=== PATIENT | female | born 1970 | race Caucasian/White ===

== ENCOUNTER 2017-04-16 18:33 | Observation (INO) ==
[2017-04-16] MEDS ORDERED: HYDROmorphone 2 MG/ML SYRINGE ONE (18:44)
[2017-04-16] MEDS ORDERED: HYDROmorphone 2 MG/ML SYRINGE IV PRN (18:45)
[2017-04-16] MEDS ORDERED: fentaNYL 100 MCG/2 ML VIAL IV ONE ×4 (18:47→19:48)
[2017-04-16] MEDS ORDERED: MIDAZOLAM 5 MG/5 ML VIAL IV ONE (19:25)
[2017-04-16] MEDS ORDERED: PROPOFOL 200 MG/20 ML VIAL IV ONE (19:25)
[2017-04-16 19:30] LABS: Basophils # (Auto) 0.1 K/mcL (0.0-0.3); Basophils % (Auto) 0.8 % (0.0-2.0); Eosinophils # (Auto) 0.1 K/mcL (0.0-0.7); Eosinophils % (Auto) 1.6 % (0.0-7.0); Granulocytes % (Auto) 36.7 % (38.0-78.0); Lymphocytes # (Auto) 4.2 K/mcL (1.5-4.8); Lymphocytes % (Auto) 52.9 % (15.5-49.0); Mean Cell Volume 95.8 fL (80.0-100.0); Mean Corpuscular HGB Conc 34.1 g/dL (31.0-36.0); Mean Corpuscular Hemoglobin 32.6 pg (26.0-34.0); Monocytes # (Auto) 0.6 K/mcL (0.1-0.9); Platelet Count 282 K/mcL (140-440); RBC 4.38 M/mcL (4.00-5.20); Red Cell Distribution Width 12.3 % (11.5-14.5)
[2017-04-16 19:48] LABS: ALT/SGPT 20 U/l (0-40); Albumin 4.3 gm/dL (3.2-5.2); Albumin/Globulin Ratio 1.4 (1.0-2.3); Alkaline Phosphatase 80 U/L (39-117); Blood Urea Nitrogen 8 mg/dl (6-20)
--- NOTE | 2017-04-16 21:00 | Emergency Department Note ---
Upper Extremity HPI - General Chief Complaint: Extremity Injury, Upper Stated Complaint: Fall, right wrist deformity Time Seen by Provider: 04/16/17 18:43 Source: patient Mode of arrival: ambulatory Limitations: no limitations - History of Present Illness HPI Narrative: 46-year-old female tripped and fell after backing up from a horse causing a FOOSH type right-sided wrist injury. She has a deformed right wrist now. Last meal was about 1 PM. Pain management is complicated by her using oral Dilaudid for chronic back pain - Related Data Home Medications Medication Instructions Recorded Confirmed armodafinil 250 mg tablet 250 mg PO QAM 06/21/15 04/16/17 pantoprazole 40 mg tablet,delayed 40 mg PO QDAY 06/21/15 04/16/17 release HYDROmorphone HCL [Dilaudid] 4 mg PO Q6H PRN 04/16/17 04/16/17 Pregabalin [Lyrica] 150 mg PO BID 04/16/17 04/16/17 buPROPion [Wellbutrin] 300 mg PO ONCE 04/16/17 04/16/17 lamoTRIgine [LaMICtal] 25 mg PO ONCE 04/16/17 04/16/17 Previous Rx's Medication Instructions Recorded morphine ER 15 mg tablet,extended 15 mg PO TID #90 tab 07/05/15 release zolpidem 10 mg tablet 5 mg PO HS PRN #30 tab 07/05/15 doxepin 25 mg capsule 25 mg PO QDAY 30 Days 07/06/15 metaxalone 800 mg tablet 800 mg PO TID PRN #30 tab 07/06/15 sumatriptan 100 mg tablet 100 mg PO ONCE PRN #30 tab 07/06/15 Allergies Allergy/AdvReac Type Severity Reaction Status Date / Time codeine AdvReac Mild Other Verified 04/17/17 06:33 hydrocodone AdvReac Mild Migraine Verified 04/17/17 06:33 Review of Systems All systems ED: reviewed and negative except as stated. Past Medical History - Past Medical History Attestation: Yes: The following information was validated with the patient. Medical history: Reports: migraine, other (Chronic low back pain, SVT) Surgical history ED: Reports: orthopedic, other (Bunionectomy, wrist), other ( face, eye, nose) - Social History smoking status: Never smoker Physical Exam Some acute distress secondary to pain. Heart is regular rate and rhythm no murmurs appreciated. Lungs are clear to auscultation bilaterally without wheezes rales rhonchi or respiratory distress. Right wrist has an S-shaped deformity consistent with a Colles fracture. Hand is examined status post reduction and splinting-radial and ulnar pulses are intact. She is able to move her fingers however this does elicit tenderness so she is minimizing any movement. Normal color to her hand - General Limitations: no limitations Course Vital Signs Temperature 98.1 F 04/16/17 18:34 Pulse Rate 101 H 04/16/17 18:34 Respiratory Rate 26 H 04/16/17 18:34 Pulse Oximetry (%) 100 04/16/17 18:34 Temperature 98.2 F 04/17/17 04:00 Pulse Rate 87 04/17/17 04:00 Respiratory Rate 24 H 04/17/17 04:01 Blood Pressure 107/58 04/17/17 04:00 Pulse Oximetry (%) 92 04/17/17 04:00 Procedures - Orthopedic Fracture Reduction Fracture #1 Consent Obtained: written consent Time Out Performed: No Side: right Fracture Reduction Location: radius, ulna Analgesia: other (Propofol by anesthesia) Technique: traction/counter-traction Post Reduction X-rays Demonstrate: acceptable reduction Post-reduction neuro exam: intact Post-reduction vascular exam: intact Splint Applied: Yes Patient Tolerated Procedure: no complications Additional Comments: Used the C arm to reduce right-sided Colles fracture was completely displaced. Dr. Godoy happened to be here for another patient and looked at my reduction and adjusted it slightly. I then placed a sugar tong splint. Extremity Injury, Upper - Lab Data Lab results reviewed: Yes I reviewed the patient's lab results. Result diagrams: 04/16/17 19:02 04/16/17 19:02 Lab Results 04/16/17 04/16/17 Range/Units 19:02 19:02 WBC 7.9 (4.5-11.0) K/mcL RBC 4.38 (4.00-5.20) M/mcL Hgb 14.3 (12.0-15.0) g/dL Hct 41.9 (36.0-48.0) % MCV 95.8 (80.0-100.0) fL MCH 32.6 (26.0-34.0) pg MCHC 34.1 (31.0-36.0) g/dL RDW 12.3 (11.5-14.5) % Plt Count 282 (140-440) K/mcL MPV 8.9 (7.4-10.4) fL Gran % 36.7 L (38.0-78.0) % Lymph % (Auto) 52.9 H (15.5-49.0) % Reynolds % (Auto) 8.0 (1.0-12.0) % Eos % (Auto) 1.6 (0.0-7.0) % Baso % (Auto) 0.8 (0.0-2.0) % Gran # 2.9 (1.8-8.0) K/mcL Lymph # (Auto) 4.2 (1.5-4.8) K/mcL Reynolds # (Auto) 0.6 (0.1-0.9) K/mcL Eos # (Auto) 0.1 (0.0-0.7) K/mcL Baso # (Auto) 0.1 (0.0-0.3) K/mcL Sodium 138 (133-145) mmol/L Potassium 3.7 (3.3-5.1) mmol/L Chloride 102 (96-108) mmol/L Carbon Dioxide 21 L (22-30) mmol/L Anion Gap 15.0 (8-16) BUN 8 (6-20) mg/dl Creatinine 0.8 (0.6-1.1) mg/dl GFR Calculation 90 Glucose 112 H (70-105) mg/dL Calcium 9.1 (8.6-10.4) mg/dl Total Bilirubin 0.2 (0.0-1.0) mg/dL AST 15 (0-37) U/l ALT 20 (0-40) U/l Alkaline Phosphatase 80 (39-117) U/L Total Protein 7.3 (5.9-8.4) gm/dL Albumin 4.3 (3.2-5.2) gm/dL Globulin 3.0 (2.2-3.7) gm/dL Albumin/Globulin Ratio 1.4 (1.0-2.3) - Radiology Data Radiology results reviewed: Yes I reviewed the patient's radiology results. X-ray of the right wrist show Colles fracture, second film shows post reduction about 80% aligned-it was better status post C arm but it has moved a little bit after splinting. Disposition Pt seen by SHANK ARCHER/PA only: No (MD only ) Clinical Impression: Colles' fracture Qualifiers: Encounter type: initial encounter Fracture type: closed Laterality: right Qualified Code(s): S52.531A - Colles' fracture of right radius, initial encounter for closed fracture Summary: Initially discussed this patient with Dr. White, the orthopedist who agreed to look into repairing her wrist tomorrow morning. However we were not able to control her pain at any time during her visit despite giving her fentanyl and Dilaudid. So I discussed her case with the hospitalist and called Dr. White back-Dr. Kendrick the hospitalist agreed to accept the patient for observation stay for IV pain management with Dr. White consulting. Disposition: Xfer As Inpt ([facility]) Condition: Fair
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
[2017-04-16] MEDS ORDERED: MAGNESIUM HYDROXIDE 30 ML ORAL.SUSP PO PRN (21:35)
[2017-04-16] MEDS ORDERED: NALOXONE HCL 0.4 MG/ML VIAL IV PRN (21:35)
[2017-04-16] MEDS ORDERED: DOCUSATE SODIUM 100 MG CAPSULE PO PRN (21:35)
[2017-04-16] MEDS ORDERED: ONDANSETRON 4 MG/2 ML VIAL IV PRN (21:35)
[2017-04-16] MEDS ORDERED: HYDROmorphone PCA 30 MG/30 ML PCA.VIAL IV PRN (21:35)
[2017-04-16] MEDS: 0.9 % SODIUM CHLORIDE 10 ML SYRINGE IV SCH (22:00)
[2017-04-16] MEDS: 0.9 % SODIUM CHLORIDE 1,000 ML IV SCH (22:00)
[2017-04-17] MEDS ORDERED: HYDROmorphone PCA 30 MG/30 ML PCA.VIAL IV PRN ×2 (04:00→18:18)
[2017-04-17] MEDS ORDERED: ZOLPIDEM 10 MG TABLET PO PRN (07:26)
[2017-04-17] MEDS ORDERED: METAXALONE 800 MG TABLET PO PRN (07:26)
[2017-04-17 07:34] LABS: ALT/SGPT 15 U/l (0-40); Albumin 3.7 gm/dL (3.2-5.2); Albumin/Globulin Ratio 1.7 (1.0-2.3); Alkaline Phosphatase 66 U/L (39-117); Bilirubin,Direct < 0.2 mg/dL (0.0-0.3); Blood Urea Nitrogen 6 mg/dl (6-20); Gamma Glutamyl Transpeptidase 42 U/L (5-36); Uric Acid 4.2 mg/dL (2.5-8.0)
[2017-04-17] MEDS ORDERED: SUMAtriptan SUCCINATE 50 MG TABLET PO PRN (07:45)
--- NOTE | 2017-04-17 07:52 | XRay Report ---
HISTORY: Reason for Exam:fall and wrist injury FINDINGS: There is an acute comminuted intra-articular fracture of the distal radius. The fracture fragments and adjacent carpal bones are displaced posteriorly and retracted proximally. There is also a fracture of the distal ulna. The distal end is deviated in a radial direction. The carpal bones appear normal and remained aligned with the fractured distal radius. IMPRESSION: Comminuted fracture of the distal radius and ulna with severe deformity Interpreted and Authenticated by: Derik Quezada 04/17/17
[2017-04-17] MEDS: 0.9 % SODIUM CHLORIDE 10 ML SYRINGE IV SCH ×3 (07:59→21:51)
[2017-04-17] MEDS: PANTOPRAZOLE 40 MG TABLET PO SCH (07:59)
--- NOTE | 2017-04-17 08:01 | XRay Report ---
HISTORY: Reason for Exam:post reduction FINDINGS: There is no good anatomic alignment following closed reduction of the comminuted fracture involving the distal radius. The distal end of the bone remains displaced in a radial direction 5 mm but there is no angulation or retraction. The fractured distal ulna is now normally aligned. Overlying cast material obscures fine bone detail. IMPRESSION: Good alignment following closed reduction of the fractured distal radius and ulna Interpreted and Authenticated by: Derik Quezada 04/17/17
[2017-04-17] MEDS ORDERED: ceFAZolin 1 GM VIAL IV SCH (08:45)
[2017-04-17] MEDS ORDERED: ONDANSETRON 4 MG/2 ML VIAL IV ONE (09:30)
[2017-04-17] MEDS ORDERED: LIDOCAINE HCL/PF 100 MG/5 ML SYRINGE IV ONE (09:30)
[2017-04-17] MEDS ORDERED: fentaNYL 100 MCG/2 ML VIAL IV ONE (09:30)
[2017-04-17] MEDS ORDERED: PROPOFOL 200 MG/20 ML VIAL IV ONE (09:30)
[2017-04-17] MEDS ORDERED: MIDAZOLAM 5 MG/5 ML VIAL IV ONE (09:30)
[2017-04-17] MEDS ORDERED: DEXAMETHASONE 10 MG/ML VIAL IV ONE (09:30)
[2017-04-17] MEDS ORDERED: ROPIVACAINE HCL/PF 20 ML VIAL IJ ONE (09:30)
[2017-04-17] MEDS ORDERED: LACTATED RINGERS 250 ML IV PRN (10:31)
[2017-04-17] MEDS ORDERED: BENZOCAINE/MENTHOL 1 LOZENGE PO PRN (10:31)
[2017-04-17] MEDS ORDERED: HYDROmorphone 2 MG/ML SYRINGE IV PRN (10:31)
[2017-04-17] MEDS ORDERED: ONDANSETRON 4 MG/2 ML VIAL IV PRN (10:31)
[2017-04-17] MEDS ORDERED: MEPERIDINE 50 MG/ML SYRINGE IM PRN (10:31)
[2017-04-17] MEDS ORDERED: ePHEDrine 50 MG/ML AMPUL IV PRN (10:31)
[2017-04-17] MEDS ORDERED: METOCLOPRAMIDE 10 MG/2 ML VIAL IV PRN (10:31)
[2017-04-17] MEDS ORDERED: FLUMAZENIL 0.1 MG/ML ML IV PRN (10:31)
[2017-04-17] MEDS ORDERED: METHOCARBAMOL 1,000 MG/10 ML VIAL IV PRN (10:31)
[2017-04-17] MEDS ORDERED: NALOXONE HCL 0.4 MG/ML VIAL IV PRN (10:31)
[2017-04-17] MEDS ORDERED: IPRATROPIUM/ALBUTEROL 3 ML AMPUL.NEB NEB PRN (10:31)
[2017-04-17] MEDS ORDERED: LACTATED RINGERS 1,000 ML IV SCH (10:45)
--- NOTE | 2017-04-17 11:06 | Brief Operative Note ---
Date of procedure: 04/17/17 Pre-op diagnosis: Right comminuted intra-articular Colles' fracture distal radius, closed Post-op diagnosis: same Procedure: Open treatment internal fixation of right closed intra-articular distal radius Colles' fracture, more than 3 fragments Grafts/Implants: Yes ([employer]) Anesthesia: GLMA Findings: severe comminution Complications: none Surgeon: Caleb White Estimated blood loss (cc): 10 Specimens Removed/Pathology: none sent Condition: stable Disposition: PACU
--- NOTE | 2017-04-17 11:08 | Discharge Summary ---
Ortho Discharge Plan - General - Patient Instructions Diet: Regular Diet Activity: non weight bearing (Right upper extremity) Dressing Care: May shower in 3 days - Follow Up Plan Follow Up Appointments: Odessa Ferguson MD [Primary Care Provider] - Caleb White MD [Physician] - Disposition: Home, Self-Care Prognosis: Fair Rehab Potential: Good
[2017-04-17] MEDS: MEPERIDINE 25 MG/ML SYRINGE IV PRN ×2 (11:29→11:42)
[2017-04-17] MEDS: fentaNYL 100 MCG/2 ML VIAL IV PRN ×2 (11:50→11:53)
[2017-04-17] MEDS ORDERED: ZOLPIDEM 5 MG TABLET PO PRN (12:05)
[2017-04-17] MEDS: buPROPion 150 MG TAB.XL.24H PO SCH (12:23)
[2017-04-17] MEDS: PREGABALIN 150 MG CAPSULE PO SCH ×2 (12:23→20:41)
[2017-04-17] MEDS: morphine 15 MG TAB.SR.12H PO SCH ×3 (12:24→20:41)
[2017-04-17] MEDS: Armodafinil [Nuvigil] 250 MG PO SCH (12:27)
[2017-04-17] MEDS: lamoTRIgine 25 MG TABLET PO SCH (12:28)
[2017-04-17] MEDS: HYDROmorphone 2 MG/ML SYRINGE IV PRN ×2 (12:51→13:28)
[2017-04-17] MEDS ORDERED: HYDROmorphone 2 MG TABLET PO ONE (14:53)
[2017-04-17] MEDS ORDERED: ACETAMINOPHEN 325 MG TABLET PO ONE (14:55)
[2017-04-17] MEDS: ACETAMINOPHEN 325 MG TABLET PO PRN (15:26)
[2017-04-17] MEDS: DOXEPIN 25 MG CAPSULE PO SCH ×2 (15:26→20:41)
[2017-04-17] MEDS ORDERED: DOXEPIN 25 MG CAPSULE PO SCH (16:00)
[2017-04-17] MEDS: HYDROmorphone 2 MG TABLET PO PRN ×2 (17:37→22:38)
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
[2017-04-17] MEDS ORDERED: HYDROmorphone PCA 30 MG/30 ML PCA.VIAL IV ONE (18:47)
[2017-04-17] MEDS: 0.9 % SODIUM CHLORIDE 1,000 ML IV SCH (19:00)
[2017-04-18] MEDS: HYDROmorphone 2 MG TABLET PO PRN ×2 (02:38→08:02)
[2017-04-18] MEDS: 0.9 % SODIUM CHLORIDE 10 ML SYRINGE IV SCH ×2 (06:24→13:51)
[2017-04-18 07:05] LABS: Basophils # (Auto) 0 K/mcL (0.0-0.3); Basophils % (Auto) 0.2 % (0.0-2.0); Eosinophils # (Auto) 0 K/mcL (0.0-0.7); Eosinophils % (Auto) 0.1 % (0.0-7.0); Granulocytes % (Auto) 70.2 % (38.0-78.0); Lymphocytes # (Auto) 1.9 K/mcL (1.5-4.8); Lymphocytes % (Auto) 20.9 % (15.5-49.0); Mean Cell Volume 96.1 fL (80.0-100.0); Mean Corpuscular HGB Conc 34.3 g/dL (31.0-36.0); Monocytes # (Auto) 0.8 K/mcL (0.1-0.9); Monocytes % (Auto) 8.6 % (1.0-12.0); Platelet Count 204 K/mcL (140-440); RBC 3.94 M/mcL (4.00-5.20); Red Cell Distribution Width 12.1 % (11.5-14.5)
[2017-04-18 07:44] LABS: ALT/SGPT 15 U/l (0-40); Albumin 3.7 gm/dL (3.2-5.2); Albumin/Globulin Ratio 1.4 (1.0-2.3); Alkaline Phosphatase 65 U/L (39-117); Bilirubin,Direct < 0.2 mg/dL (0.0-0.3); Blood Urea Nitrogen 5 mg/dl (6-20); Gamma Glutamyl Transpeptidase 49 U/L (5-36); Magnesium 1.8 mg/dL (1.6-2.5); Uric Acid 3.5 mg/dL (2.5-8.0)
[2017-04-18] MEDS: PANTOPRAZOLE 40 MG TABLET PO SCH (08:02)
[2017-04-18] MEDS ORDERED: POTASSIUM CHLORIDE 20 MEQ PACKET PO ONE (08:42)
[2017-04-18] MEDS ORDERED: HYDROmorphone 2 MG TABLET PO PRN ×4 (08:45→11:26)
[2017-04-18] MEDS ORDERED: buPROPion 300 MG TAB.XL.24H PO SCH (09:00)
[2017-04-18] MEDS: lamoTRIgine 25 MG TABLET PO SCH (09:52)
[2017-04-18] MEDS: morphine 15 MG TAB.SR.12H PO SCH ×2 (09:52→15:25)
[2017-04-18] MEDS: PREGABALIN 150 MG CAPSULE PO SCH (09:52)
[2017-04-18] MEDS: buPROPion 150 MG TAB.XL.24H PO SCH (09:52)
[2017-04-18] MEDS: Armodafinil [Nuvigil] 250 MG PO SCH (09:53)
--- NOTE | 2017-04-18 11:29 | Orthopedic Progress Note ---
Subjective Patient information: Note initiated : 04/18/17 at 11:26 am Service Date, if different from initiated Date: [] Patient: Dee Bernard 46 y/o F admitted on 04/16/17 for Fall, Right Wrist Deformity/Right Wrist Fracture. Chief Complaint: pain is worse and need for pain meds increasing s/p cr pcp right wrist[] Objective Vital signs: Vital Signs Temp Pulse Resp BP BP Pulse Ox 04/18/17 09:58 90 24 H 94 04/18/17 08:20 20 04/18/17 07:31 98.3 F 18 138/77 95 04/18/17 04:00 97.5 F 79 18 172/79 94 04/18/17 00:00 97.6 F 82 20 176/94 95 04/17/17 22:00 95 04/17/17 20:00 14 04/17/17 19:50 97.9 F 73 20 158/80 99 04/17/17 19:00 16 04/17/17 15:12 97.9 F 20 108/87 93 04/17/17 14:00 18 111/71 92 04/17/17 13:30 18 108/71 93 04/17/17 13:00 20 121/72 93 04/17/17 12:45 18 109/77 94 04/17/17 12:30 16 126/69 93 04/17/17 12:15 20 115/79 94 04/17/17 12:00 98.0 F 20 128/87 92 04/17/17 11:55 97.9 F 84 16 122/68 94 Intake and Output 04/17/17 04/18/17 04/18/17 21:59 05:59 13:59 Intake Total 620 / 620 400 / 400 Balance 620 / 620 400 / 400 Intake: IV 420 / 420 Sodium Chloride 0.9% 1, 420 / 420 000 ml @ 20 mls/hr IV . Q24H [facility] Rx#:[id number] Oral 200 / 200 400 / 400 Other: Meal Breakfast Percent of Meal Consumed 100% # Voids 1 1 Weight 200 lb Intake & Output: Intake & Output 04/17/17 04/18/17 04/18/17 21:59 05:59 13:59 Intake Total 620 / 620 400 / 400 Balance 620 / 620 400 / 400 Weight 200 lb Intake: IV 420 / 420 Sodium Chloride 0.9% 1, 420 / 420 000 ml @ 20 mls/hr IV . Q24H [facility] Rx#:[id number] Oral 200 / 200 400 / 400 Other: Meal Breakfast Percent of Meal Consumed 100% # Voids 1 1 Incision: Yes healing Incision clean and dry: Yes Dressing: Yes clean Weight bearing status: non (pain with finger motion and passive motion and bandage was released completely with less pain) - Labs CBC & BMP: 04/18/17 04:49 04/18/17 04:49 Labs: 04/18/17 04:49 Hgb 13.0 Hct 37.8
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
[2017-04-18] MEDS: ACETAMINOPHEN 325 MG TABLET PO PRN (13:51)
[2017-04-18] MEDS ORDERED: LIDOCAINE PATCH TOPICAL ONE (14:21)
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
--- NOTE | 2017-04-24 13:23 | Operative Note ---
DATE OF OPERATION: 04/16/2017 PREOPERATIVE DIAGNOSIS: Right severely comminuted intra-articular Colles distal radius fracture with a distal ulnar fracture. POSTOPERATIVE DIAGNOSIS: Right severely comminuted intra-articular Colles distal radius fracture with a distal ulnar fracture. PROCEDURE PERFORMED: Open treatment and internal fixation of closed comminuted intra-articular Colles fracture on the right involving more than three fragments. SURGEON: Caleb White MD. INSPECTOR CANVAS PRODUCTS: None. ANESTHESIA: General. DRAINS: None. SPECIMENS: None. COMPLICATIONS: None. BLOOD LOSS: 10 mL POSTOPERATIVE CONDITION: Stable. INDICATIONS FOR SURGERY: This is a 47-year-old female who fell down yesterday on her outstretched hand, had a severely comminuted 100% displaced distal radius fracture and ulnar fracture. FINDINGS AT SURGERY: As above. Post implantation showed overall good radial inclination, and height with volar tilt. Articular surface appeared well reduced and the hardware in satisfactory position. PROCEDURE IN DETAIL: The patient had been seen in preop holding. Informed consent had been obtained after discussion of risks and benefits of surgery. Risks including, but not limited to, bleeding; infection; injury to nerves, blood vessels, and other surrounding structures; anesthetic risks; nonunion or malunion of the fracture; failure of hardware fixation, stiffness, arthritis, pain and possibility of needing further surgery. We did discuss with her given her high dose chronic narcotics that she is more likely to have chronic pain with this. She understood these risks and wished to proceed. Correct operative site was marked and then patient was taken to the operating room. General anesthesia was induced. The right upper extremity was carefully prepped and draped in normal sterile fashion and a time-out was performed verifying patient name, operative site, and plan. Esmarch was used to exsanguinate the extremity and tourniquet was inflated to 250. Volar incision was made over the flexor carpi radialis tendon and we continued sharp dissection through the tendon sheath. The tendon was retracted and the floor of the sheath was incised sharply. Blunt dissection was taken down onto the pronator which was badly torn from the fracture. AO elevator was used to expose subperiosteally the distal volar cortex. We then performed a reduction maneuver. We placed a 0.062 K-wire through the radial styloid; however, due to the comminution of the fracture this was fairly unstable. I ended up placing a dorsal block K-wire and then having to continue to readjust and shift until we had acceptable alignment and then placed another K-wire through the radial styloid. We then placed a standard DVR right 4-hole plate, positioned this along the best fit of the curvature of the volar radius and then drilled and placed a nonlocking screw in the slot. We then checked with fluoro and adjusted the plate so we liked position and then placed another screw in the shaft proximally bicortically. I then went to the hole proximal to the slot and drilled and placed another bicortical screw. We ended up leaving the proximal hole empty to avoid a stress riser at the end of the plate. I then went to the distal cluster and started drilling and placing smooth locking pegs. Initially the proximal row and then removing K-wires as necessary to fill the holes and then the distal row. Fluoro images were taken, AP and then radially inclined lateral, which showed good overall alignment of the articular surface as well as taoist of the radial inclination, and height and volar tilt. These images were saved and printed and then irrigated copiously with saline. Her pronator quadratus was repaired as best as possible, but there was minimal tissue to work with. I used 3-0 Vicryl for that, then used a 3-0 Monocryl for subcutaneous and then a 4-0 Monocryl running subcuticular for skin. Mastisol and Steri-Strips were placed and then Xeroform was placed over the stab holes from the pins. I then used a Webril and then Luis Alberto wrap. Tourniquet was released and a carpal tunnel brace supplied by [facility] was applied. The patient was then awakened, extubated, and transferred to recovery in stable condition. AYLIN:[email or web address] Job ID: [id number] Doc ID: [id number] Caleb White MD
== END 2017-04-18 15:30 | disposition home or self-care (01) ==
LOC: ED 18:33 → MEDSUR 18:33
PROVIDERS: ADMIT Internal Medicine; ATTEND Internal Medicine

== ENCOUNTER 2024-12-06 01:40 | Observation (INO) ==
[2024-12-06] MEDS ORDERED: IOPAMIDOL 100 ML BOTTLE IV ONE (01:41)
[2024-12-06] MEDS: KETOROLAC 30 MG/ML VIAL IV ONE (02:03)
[2024-12-06] MEDS: 0.9 % SODIUM CHLORIDE 1,000 ML IV ONE (02:04)
[2024-12-06 02:11] LABS: Basophils # (Auto) 0.02 K/mcL (0.00-0.30); Basophils % (Auto) 0.3 % (0.0-2.0); Eosinophils # (Auto) 0.09 K/mcL (0.00-0.70); Eosinophils % (Auto) 1.1 % (0.0-7.0); Hematocrit 42.4 % (34.1-44.9); Hemoglobin 13.9 g/dL (11.2-15.7); Lymphocytes # (Auto) 3.72 K/mcL (1.50-4.80); Lymphocytes % (Auto) 46.7 % (15.5-49.0); Mean Cell Volume 95.7 fL (80.0-100.0); Mean Corpuscular HGB Conc 32.8 g/dL (31.0-36.0); Mean Platelet Volume 9.2 fL (8.8-12.5); Monocytes # (Auto) 0.43 K/mcL (0.10-0.90); Monocytes % (Auto) 5.4 % (1.0-12.0); Neutrophils % (Auto) 46.4 % (38.0-78.0); Platelet Count 281 K/mcL (140-440); RBC 4.43 M/mcL (3.59-5.38); Red Cell Distribution Width 12.8 % (11.5-14.5)
[2024-12-06 02:31] LABS: ALT/SGPT 14 U/L (<40); AST/SGOT 16 U/L (<32); Albumin 4.5 gm/dL (3.2-5.2); Albumin/Globulin Ratio 1.6 (1.0-2.3); Alkaline Phosphatase 90 U/L (39-117); Bilirubin,Total < 0.2 mg/dL (0.1-1.0); Blood Urea Nitrogen 10 mg/dL (6-20); Calcium 10.5 mg/dL (8.6-10.4); Carbon Dioxide 26 mmol/L (22-30); Chloride 98 mmol/L (96-108); Globulin 2.8 gm/dL (2.2-3.7); Glomerular Filtration Rate 104; Glucose 110 mg/dL (70-105); Potassium 3.7 mmol/L (3.3-5.1); Sodium 136 mmol/L (133-145)
[2024-12-06 02:48] LABS: INR 0.8 (0.9-1.1); Prothrombin Time 12.3 sec (11.9-14.5)
[2024-12-06] MEDS: HYDROmorphone 1 MG/ML SYRINGE IV PRN ×2 (03:11→07:21)
[2024-12-06 04:47] LABS: Appearance,Urine Clear (Clear); Bilirubin,Urine Negative (Negative); Color,Urine Yellow; Glucose,Urine (UA) Negative (Negative); Ketones,Urine Negative (Negative); Leukocyte Esterase,Urine Negative /uL (Negative); Nitrate,Urine Negative (Negative); Protein,Urine Negative (Negative); Urine Blood Negative ery/mcL (Negative); Urobilinogen,Urine Normal
[2024-12-06] MEDS ORDERED: ONDANSETRON 4 MG/2 ML VIAL IV PRN ×3 (06:10→14:58)
[2024-12-06] MEDS ORDERED: NALOXONE HCL 0.4 MG/ML VIAL IV PRN (06:16)
[2024-12-06] MEDS: 0.9 % SODIUM CHLORIDE 1,000 ML IV SCH (08:12)
[2024-12-06] MEDS: HYDROmorphone 0.5 MG/0.5 ML SYRINGE IV ONE (08:13)
[2024-12-06] MEDS: ACETAMINOPHEN 1,000 MG/100 ML BAG IV SCH ×2 (08:20→17:42)
[2024-12-06] MEDS: PIPERACILLIN SODIUM/TAZOBACTAM 3.375 GM in DEXTROSE 5% IN WATER 50 ML IV SCH (09:19)
[2024-12-06] MEDS: PIPERACILLIN SODIUM/TAZOBACTAM 3.375 GM in DEXTROSE 5% IN WATER 50 ML IV ONE (09:36)
[2024-12-06] MEDS: 0.9 % SODIUM CHLORIDE 10 ML SYRINGE IV SCH (13:11)
[2024-12-06] MEDS ORDERED: PROPOFOL 200 MG/20 ML VIAL IV ONE (13:41)
[2024-12-06] MEDS ORDERED: fentaNYL 100 MCG/2 ML VIAL ONE (13:41)
[2024-12-06] MEDS ORDERED: SUGAMMADEX SODIUM 200 MG/2 ML VIAL IV ONE (13:41)
[2024-12-06] MEDS ORDERED: LIDOCAINE 2% PF 5 ML VIAL ONE (13:42)
[2024-12-06] MEDS ORDERED: ONDANSETRON 4 MG/2 ML VIAL ONE (13:42)
[2024-12-06] MEDS ORDERED: ROCURONIUM 10 MG/ML ML IV ONE (13:42)
[2024-12-06] MEDS ORDERED: GLYCOPYRROLATE 0.2 MG/ML VIAL IV ONE (13:42)
[2024-12-06] MEDS ORDERED: DEXAMETHASONE 10 MG/ML VIAL ONE (13:42)
[2024-12-06] MEDS ORDERED: MIDAZOLAM 2 MG/2 ML VIAL ONE (13:59)
[2024-12-06] MEDS: PIPERACILLIN SODIUM/TAZOBACTAM 3.375 GM in 0.9 % SODIUM CHLORIDE 100 ML IV SCH (14:07)
[2024-12-06] MEDS ORDERED: PHENYLephrine 1 MG/10 ML SYRINGE (ANEST) ONE (14:31)
[2024-12-06] MEDS ORDERED: KETAMINE 50 MG/ML Syringe IV ONE (14:32)
[2024-12-06] MEDS ORDERED: ePHEDrine 50 MG/5 ML SYRINGE (ANEST) IV ONE (14:50)
[2024-12-06] MEDS ORDERED: MAGNESIUM SULFATE 2 GM/50 ML BAG IV ONE (14:54)
[2024-12-06] MEDS ORDERED: BENZOCAINE/MENTHOL 1 LOZENGE PO PRN (14:58)
[2024-12-06] MEDS ORDERED: IPRATROPIUM/ALBUTEROL 3 ML AMPUL.NEB NEB PRN (14:58)
[2024-12-06] MEDS ORDERED: HYDROmorphone 0.5 MG/0.5 ML SYRINGE ONE (15:10)
[2024-12-06] MEDS ORDERED: DOCUSATE SODIUM 100 MG CAPSULE PO PRN (15:27)
[2024-12-06] MEDS ORDERED: LORazepam 0.5 MG TABLET PO PRN (15:27)
[2024-12-06] MEDS: LACTATED RINGERS 1,000 ML IV SCH (15:29)
[2024-12-06] MEDS: fentaNYL 100 MCG/2 ML VIAL IV PRN (15:43)
[2024-12-06] MEDS: METHOCARBAMOL 1,000 MG/10 ML VIAL IV PRN (15:43)
[2024-12-06] MEDS: DOXEPIN 25 MG CAPSULE PO SCH (16:20)
[2024-12-06] MEDS: lamoTRIgine 100 MG TABLET PO SCH (20:11)
[2024-12-06] MEDS: METHOCARBAMOL 500 MG TABLET PO PRN (20:11)
[2024-12-06] MEDS: ZOLPIDEM 5 MG TABLET PO PRN (20:12)
[2024-12-06] MEDS: Fluvoxamine 50 mg tablet PO SCH (20:12)
[2024-12-07] MEDS: SUMAtriptan SUCCINATE 50 MG TABLET PO PRN (06:59)
[2024-12-07 08:16] LABS: Basophils # (Auto) 0 K/mcL (0.00-0.30); Basophils % (Auto) 0 % (0.0-2.0); Eosinophils # (Auto) 0 K/mcL (0.00-0.70); Eosinophils % (Auto) 0 % (0.0-7.0); Hematocrit 36.5 % (34.1-44.9); Hemoglobin 12.1 g/dL (11.2-15.7); Lymphocytes # (Auto) 0.95 K/mcL (1.50-4.80); Lymphocytes % (Auto) 8.8 % (15.5-49.0); Mean Cell Volume 94.6 fL (80.0-100.0); Mean Corpuscular HGB Conc 33.2 g/dL (31.0-36.0); Mean Platelet Volume 9.4 fL (8.8-12.5); Monocytes # (Auto) 0.26 K/mcL (0.10-0.90); Monocytes % (Auto) 2.4 % (1.0-12.0); Neutrophils % (Auto) 88.6 % (38.0-78.0); Platelet Count 224 K/mcL (140-440); RBC 3.86 M/mcL (3.59-5.38); Red Cell Distribution Width 12.7 % (11.5-14.5); WBC 10.8 K/mcL (4.5-11.0)
[2024-12-07] MEDS: METOPROLOL TARTRATE 25 MG TABLET PO SCH (08:20)
[2024-12-07] MEDS: ESTRADIOL 1 MG TABLET PO SCH (08:20)
[2024-12-07 08:26] LABS: ALT/SGPT 30 U/L (<40); AST/SGOT 31 U/L (<32); Albumin 3.7 gm/dL (3.2-5.2); Albumin/Globulin Ratio 1.4 (1.0-2.3); Alkaline Phosphatase 76 U/L (39-117); Bilirubin,Direct < 0.2 mg/dL (0-0.3); Bilirubin,Total 0.2 mg/dL (0.1-1.0); Blood Urea Nitrogen 6 mg/dL (6-20); Carbon Dioxide 23 mmol/L (22-30); Chloride 104 mmol/L (96-108); Globulin 2.6 gm/dL (2.2-3.7); Glomerular Filtration Rate 104; Glucose 117 mg/dL (70-105); Lactate Dehydrogenase 88 U/L (135-225); Phosphorous 3.4 mg/dL (2.5-4.5); Sodium 137 mmol/L (133-145); Triglycerides 98 mg/dL (<150); Uric Acid 2.9 mg/dL (2.5-8.0)
[2024-12-07] MEDS ORDERED: lamoTRIgine 25 MG TABLET PO SCH (09:00)
[2024-12-07 16:15] VITALS: TEMP 97.8; O2SAT 100
== END 2024-12-07 16:40 | disposition home or self-care (01) ==
LOC: ED 01:40 → MEDSUR 01:40
PROVIDERS: ADMIT Family Medicine Adult Medicine; ATTEND Family Medicine Adult Medicine